=== PATIENT | female | born 1930 | race Caucasian/White ===

== ENCOUNTER 2017-08-01 08:20 | Emergency (ER) | payer OTHER, BC ==
[2017-08-01] MEDS ORDERED: ONDANSETRON 4 MG/2 ML VIAL IVPB ONE (08:42)
--- NOTE | 2017-08-01 08:43 | PDOC ---
History of Present Illness - General Chief Complaint: Weakness Stated Complaint: WEAK VOMITING Time Seen by Provider: 08/01/17 08:41 - History of Present Illness Initial Comments: 08/01/17 10:00 Chief complaint: Confusion History of present illness: Brought in by , states that patient became confused last night, with difficulty ambulating due to unsteady gait. No loss of consciousness, no headache, no other symptoms. Review of systems: The patient is responsive and answers questions appropriately. Denies any pain or other symptom but does not know why she was brought to the hospital. Past medical history: Otherwise healthy female, usually active, alert, and cares for self, no current medical or surgical illnesses in no medication. Under the care of Dr. Culp for routine follow-up. According to the patient and her , no cardiac or neurologic disease, no prior MA TIA or stroke. Social history: Former smoker, quit 25 years ago. No drugs or alcohol. No disability Family history: Reviewed and noncontributory Physical exam: Drowsy but arousable, appears to answer questions appropriately, oriented to person and place but not time. Does not know why she was brought to the hospital, as noted above Afebrile, vital signs normal Head atraumatic. PERRLA 4 mm, fundi not visible secondary to cataracts, ENT clear Neck supple without bruit mass or nodes Chest clear to P&A with full breath sounds bilaterally, no wheezes rales or rhonchi CV S1 and S2 normal without murmur rub or gallop pulses full and symmetric no JVD or edema no bruits Abdomen soft nontender without mass or organomegaly. Nondistended, normal bowel sounds Neurological C2 to 12 intact. Generalized weakness but no focal sensory or motor deficits could be documented. Babinski's down bilaterally. DTRs 2+ symmetric. Gait not assessed Extremities no CCE Skin clear, no rash, adequate turgor, mucous membranes slightly dry Impression: Change in mental status, confusion, sudden onset, possible CVA, intracranial hemorrhage, occult infection, metabolic derangement, acute cardiac event Plan: EKG and enzymes, CBC and chemistries, chest x-ray, head CT, and further evaluation depending on results Past History - Past Medical History Allergies/Adverse Reactions: Allergies Allergy/AdvReac Type Severity Reaction Status Date / Time No Known Allergies Allergy Verified 08/01/17 08:26 Cancer: Yes (COLON) GI Disorders: Yes (CHRONIC CONSTIPATION) Hypercholesterolemia: Yes - Surgical History Abdominal Surgery: Yes (COLON RESECTION, L INGUINAL HERNIA REPAIR) - Suicide/Smoking/Psychosocial Hx Smoking Status: No Smoking History: Never smoked Number of Cigarettes Smoked Daily: 0 Hx Alcohol Use: No Drug/Substance Use Hx: No Substance Use Type: None ED Treatment Course - LABORATORY CBC & Chemistry Diagram: 08/01/17 09:02 08/01/17 08:55 Medical Decision Making - Medical Decision Making 08/01/17 10:06 Chest x-ray is clear Head CT reveals an acute intracranial hemorrhage, right frontal area. Transfer being initiated to [facility] for specialized neurological care. 08/01/17 10:43 Laboratories show no significant abnormalities except for a minimally low potassium of 3.4. Cardiac enzymes are negative. [facility] was contacted for transfer. The patient was accepted to the neurosurgery ICU, Dr. Alston. ACLS transport arranged with [facility] with an ETA to [place] of 20 minutes. [facility] was notified of this. The patient remains clinically and hemodynamically stable, neurological exam is unchanged as of now. She is drowsy but arousable and interactive, communicating in the same way as when she first arrived. Stroke score remains 2. *DC/Admit/Observation/Transfer Diagnosis at time of Disposition: Intracerebral hemorrhage Qualifiers: Intracerebral hemorrhage etiology: nontraumatic Cerebral hemorrhage location: unspecified cerebral location Laterality: right Qualified Code(s): I61.9 - Nontraumatic intracerebral hemorrhage, unspecified - Referrals - Patient Instructions - Post Discharge Activity - Transfer to Acute Care Facility Receiving Facility: [facility].
[2017-08-01] MEDS ORDERED: SODIUM CHLORIDE 1,000 ML IV SCH (08:45)
[2017-08-01 08:46] VITALS: TEMP 98.5; BMI 23.8
[2017-08-01] MEDS ORDERED: ONDANSETRON 4 MG/2 ML VIAL ONE (09:05)
[2017-08-01 09:37] LABS: PH,URINE 7.5 (4.5-8); URINE APPEARANCE Clear; URINE BILIRUBIN Negative (NEGATIVE); URINE GLUCOSE (UA) Negative (NEGATIVE); URINE KETONE Negative (NEGATIVE); URINE LEUK ESTERASE Negative (NEGATIVE); URINE NITRITE Negative (NEGATIVE); URINE PROTEIN Negative (NEGATIVE); URINE UROBILINOGEN 0.2 (0.2-1.0)
[2017-08-01 09:42] LABS: BASO % 0.6 % (0-2.0); EOS % 0.3 % (0-4.5); HEMATOCRIT 38.3 % (32.4-45.2); HEMOGLOBIN 13.4 GM/dl (10.7-15.3); LYMPH % 17.6 % (8-40); MCH 34.9 pg (25.7-33.7); MCHC 34.9 g/dl (32.0-36.0); MEAN CELL VOLUME 100.2 fl (80-96); MEAN PLT VOLUME 10.2 fl (7.5-11.1); MONO % 5.5 % (3.8-10.2); PLATELET COUNT 121 K/MM3 (134-434); RBC 3.82 M/mm3 (3.60-5.2); RDW 12.6 % (11.6-15.6); WHITE BLOOD COUNT 5.8 K/mm3 (4.0-10.8)
[2017-08-01 09:59] LABS: ANION GAP 8 (8-16); BLOOD UREA NITROGEN 9 mg/dl (7-18); CHLORIDE 99 mmol/L (98-107); CO2 28 mmol/L (22-28); CREATININE 0.6 mg/dl (0.6-1.3); GLUCOSE,RANDOM 112 mg/dl (74-106); POTASSIUM 3.4 mmol/L (3.5-5.1); SODIUM 135 mmol/L (136-145); TOT PROT 7.2 g/dl (6.4-8.3)
[2017-08-01 10:00] LABS: ALBUMIN 4.2 g/dl (3.5-5.0); ALK PHOS 35 U/L (32-92); BILIRUBIN,TOTAL 0.8 mg/dl (0.2-1.0); SGOT/AST 22 U/L (10-42); SGPT/ALT 14 U/L (10-40)
[2017-08-01 10:05] LABS: URINE BLOOD Trace-intact (NEGATIVE); URINE COLOR YELLOW
--- NOTE | 2017-08-01 10:18 | PDOC ---
NIH Stroke Scale - Initial Evaluation Level of consciousness: Not alert, but arousable with minimal stimulation Ask patient the month and their age: Answers one correctly Ask patient to open & close eyes; make fist and let go: Obeys both correctly Best gaze (horizontal eye movement): Normal Visual field testing: No visual field loss Facial paresis (Show teeth/raise eyebrows/close eyes tight): Normal symmetrical movement Motor Function: Left Arm: Normal Motor Function: Right Arm: Normal (extends arm 90 (or 45) degrees for 10 seconds without drift Motor Function: Left Leg: Normal (extends leg 30 degrees for 5 seconds without drift) Motor Function: Right Leg: Normal (extends leg 30 degrees for 5 seconds without drift) Limb Ataxia: No ataxia Sensory(Use pinprick test arms,legs,trunk,face/side to side): Normal Best language (Describe picture, name items, read sentences): No Aphasia Dysarthria (read several words): Normal articulation Extinction and Inattention: No abnormality - Total Score NIH Stroke Scale Score: 2
[2017-08-01 10:56] VITALS: BP 142/77; PULSE 68
[2017-08-01 12:03] LABS: EPI CELLS RARE /HPF; URINE RBC 0-2 /hpf (0-3); URINE WBC 0-2 (0-5)
[2017-08-01 12:04] LABS: URINE BACTERIA NONE SEEN /hpf (NEGATIVE)
--- NOTE | 2017-08-02 11:22 | EKG ---
Test Reason : Blood Pressure : / mmHG Vent. Rate : 063 BPM Atrial Rate : 063 BPM P-R Int : 168 ms QRS Dur : 082 ms QT Int : 448 ms P-R-T Axes : 050 -03 028 degrees QTc Int : 458 ms NORMAL SINUS RHYTHM POSSIBLE LEFT ATRIAL ENLARGEMENT LEFT VENTRICULAR HYPERTROPHY ABNORMAL ECG WHEN COMPARED WITH ECG OF 18-OCT-2007 08:15, NO SIGNIFICANT CHANGE WAS FOUND Confirmed by TEVIN CORONA MD ([id number]) on 08/02/2017 11:22:25 AM Referred By: BAKARI RITCHIE Confirmed By:TEVIN CORONA MD
== END 2017-08-01 11:19 | disposition short-term general hospital (02) ==
LOC: FER 08:20
PROC: 3E033GC Introduction of Other Therapeutic Substance into Peripheral Vein, Percutaneous Approach (ICD-10-PCS; principal; 2017-08-01)
PROC: 3E0337Z Introduction of Electrolytic and Water Balance Substance into Peripheral Vein, Percutaneous Approach (ICD-10-PCS; 2017-08-01)
DX: I61.9 Nontraumatic intracerebral hemorrhage, unspecified (principal); Z87.891 Personal history of nicotine dependence
CPT/HCPCS: 36415; 70450-TC; 71045-TC-FY; 80053; 81003; 81015; 82550; 84484; 85025; 87086; 93005; 99285-25; J7030